=== PATIENT | male | born 1955 | race Caucasian/White ===

== ENCOUNTER 2022-10-13 20:26 | Emergency (ER) | payer OTHER ==
[2022-10-13] MEDS ORDERED: Lidocaine 1% 10 ML MDV INJECT ONE (21:08)
== END 2022-10-13 22:14 | disposition home or self-care (01) ==
LOC: JD.ED 20:26
DX: S61.412A Laceration without foreign body of left hand, initial encounter (principal); S61.211A Laceration without foreign body of left index finger without damage to nail, initial encounter; W26.0XXA Contact with knife, initial encounter
CPT/HCPCS: 12002; 99282

== ENCOUNTER 2024-11-29 22:34 | Emergency (ER) | payer OTHER, MEDICARE ==
[2024-11-30] MEDS: diphenhydrAMINE 50 MG Cap PO ONE (00:34)
[2024-11-30] MEDS: Dexamethasone 6 MG TABLET PO ONE (02:30)
== END 2024-11-30 02:40 | disposition home or self-care (01) ==
LOC: JD.ED 22:34
DX: L42 Pityriasis rosea (principal); Z79.52 Long term (current) use of systemic steroids; Z96.659 Presence of unspecified artificial knee joint
CPT/HCPCS: 99282; Q0163